=== PATIENT | male | born 2000 ===

== ENCOUNTER 2022-09-10 20:39 | Emergency (ER) | payer OTHER, SELFPAY ==
--- NOTE | 2022-09-10 20:46 | ED_ITS ---
HPI - General Adult General Chief complaint: Upper Respiratory Symptoms Stated complaint: Sore throat Time Seen by Provider: 09/10/22 20:41 History of Present Illness HPI narrative: 22-year-old male nonsmoker with noncontributory chronic medical history presents with his significant other for evaluation of sore throat and fever. He states he started getting sick on but then over the weekend started developing fear for her, significant sore throat in the absence of other symptoms such as runny nose, sneezing or cough. He is had no chest pain or shortness of breath. He denies nausea, vomiting or diarrhea. He presented to an outside walk-in clinic yesterday, had a rapid strep and though it was negative was started on amoxicillin, he presents today because he isn't feeling better. He denies exposure to other people that are ill. He feels fatigued and a bit lightheaded when walking, he states that he is had a hard time keeping food and drink down due to pain Related Data Allergies Allergy/AdvReac Type Severity Reaction Status Date / Time No Known Drug Allergies Allergy Verified 09/10/22 21:20 Review of Systems Review of Systems Narrative: GENERAL: See HPI HEENT: See HPI RESPIRATORY: See HPI CARDIOVASCULAR: Denies chest pain, palpitations, orthopnea, edema, GASTROINTESTINAL: Denies nausea, vomiting, abdominal pain, diarrhea, constipation, melena. : Denies dysuria, frequency, incontinence, hematuria, urinary retention. MUSCULOSKELETAL: denies weakness, joint pain, or bony pain SKIN: Denies rash, skin lesions, or other NEUROLOGIC: Denies weakness, headache, numbness, change in speech, confusion, seizures, incoordination. PSYCHIATRIC: No concerning psychosocial issues. 12 point review of systems is negative except for those stated above Patient History Social History Smoking Status: Never smoker Exam Narrative Exam Narrative: GENERAL: [22] year old patient appears stated age. Well-developed patient, in mild distress. HEAD: Atraumatic. Normocephalic. EYES: Pupils equal round and reactive. Extraocular motions intact. No scleral icterus. No injection or drainage. ENT: Nose without bleeding, purulent drainage. Throat is impressively erythematous with exudate on bilateral tonsils and posterior pharynx,. Airway patent. NECK: Trachea midline. Non tender CARDIOVASCULAR: Regular rate and rhythm without murmurs, gallops, or rubs. RESPIRATORY: Clear to auscultation. Breath sounds equal bilaterally. No wheezes, rales, or rhonchi. GASTROINTESTINAL: Abdomen soft, non-tender, nondistended. EXTREMITIES: No edema or joint tenderness. BACK: Nontender without deformity or crepitance. No flank tenderness. NEURO: AOx3. SKIN: No rash or erythema of visible areas Initial Vital Signs Initial Vital Signs: Vital Signs Temperature 101.5 F H 09/10/22 21:11 Pulse Rate 123 H 09/10/22 21:11 Respiratory Rate 18 09/10/22 21:11 Blood Pressure 141/75 H 09/10/22 21:11 Pulse Oximetry 97 09/10/22 21:11 Oxygen Delivery Method 09/10/22 21:11 Course Orders Ordered: ED Orders 09/10/22 21:04 Complete Blood Count AUTO DIFF Stat Comprehensive Metabolic Panel Stat Lactate (Lactic Acid) Stat Monotest Stat 09/10/22 21:33 Throat Culture Stat 09/10/22 21:40 Blood Culture Stat Discontinued Medications Dexamethasone (Dexamethasone 10 Mg/Ml Vial) 10 mg IV NOW ONE Stop: 09/10/22 20:54 Last Admin: 09/10/22 21:21 Dose: 10 mg Documented By: ZAIDA Lactated Ringer's (Lactated Ringers) 1,000 mls @ 1,000 mls/hr IV BOLUS ONE Stop: 09/10/22 21:52 Last Infusion: 09/10/22 22:44 Dose: 0 mls/hr Documented By: Admin: 09/10/22 21:20 Dose: 1,000 mls/hr Documented By: ZAIDA Ketorolac Tromethamine (Ketorolac 30 Mg/Ml Vial) 15 mg IV NOW ONE Stop: 09/10/22 20:54 Last Admin: 09/10/22 21:21 Dose: 15 mg Documented By: ZAIDA Vital Signs Vital signs: Vital Signs - 8 hr 09/10/22 21:11 09/10/22 22:08 09/10/22 22:07 Temperature 101.5 F H 99.4 F Pulse Rate 123 H 97 H Respiratory Rate 18 Blood Pressure 141/75 H Pulse Oximetry 97 96 Oxygen Delivery Method Room Air 09/10/22 22:30 09/10/22 22:40 09/10/22 22:40 Temperature Pulse Rate 91 H 101 H Respiratory Rate Blood Pressure 130/69 Pulse Oximetry 96 97 Oxygen Delivery Method Medical Decision Making Lab Data 09/10/22 21:04 09/10/22 21:04 Labs: Lab Results 09/10/22 09/10/22 09/10/22 Range/Units 21:04 21:04 21:04 WBC 11.6 H (4.5-11.0) X10^3/uL RBC 5.27 (4.5-5.9) X10^6/uL Hgb 14.7 (13.5-17.5) g/dL Hct 42.4 (41-53) % MCV 80.5 (80-100) fL MCH 27.8 (26-34) PG MCHC 34.5 (30-36) % RDW 13.2 (11.6-14.8) % Plt Count 238 (150-400) X10^3/uL Neut % (Auto) Not Reportable Lymph % (Auto) Not Reportable Wagoner % (Auto) Not Reportable Eos % (Auto) Not Reportable Baso % (Auto) Not Reportable Lymph # (Auto) Not Reportable Wagoner # (Auto) Not Reportable Baso # (Auto) Not Reportable Total Counted 100 Seg Neutrophils % 67.0 (38-70) % Band Neutrophils % 6.0 (3-7) % Lymphocytes % (Manual) 12.0 L (25-45) % Monocytes % (Manual) 13.0 H (2-11) % Basophils % (Manual) 1.0 (0-1) % Metamyelocytes % 1.0 H (-0) % Neutrophils # (Manual) 8468 H (4356-9564) /uL RBC Morphology Normal morphology Sodium 137 (137-145) mmol/L Potassium 3.9 (3.4-5.1) mmol/L Chloride 100 (98-107) mmol/L Carbon Dioxide 22 (22-32) mmol/L BUN 17 (9-20) mg/dL Creatinine 1.06 (0.66-1.25) mg/dL Estimated GFR > 60 (>60) mL/min BUN/Creatinine Ratio 16.0 (6-22) Glucose 95 (70-100) mg/dL Lactate 0.7 (0.7-2.1) mmol/L Calcium 8.6 (8.4-10.2) mg/dL Total Bilirubin 1.5 H (0.2-1.3) mg/dL AST 30 (17-59) IU/L ALT 33 (<50) IU/L Alkaline Phosphatase 56 (38-126) U/L Total Protein 8.4 H (6.3-8.2) g/dL Albumin 4.5 (3.5-5.0) g/dL Globulin 3.9 (1.7-4.1) g/dL Albumin/Globulin Ratio 1.2 (1.0-2.8) Monoscreen (Negative) 09/10/22 Range/Units 21:04 WBC (4.5-11.0) X10^3/uL RBC (4.5-5.9) X10^6/uL Hgb (13.5-17.5) g/dL Hct (41-53) % MCV (80-100) fL MCH (26-34) PG MCHC (30-36) % RDW (11.6-14.8) % Plt Count (150-400) X10^3/uL Neut % (Auto) Lymph % (Auto) Wagoner % (Auto) Eos % (Auto) Baso % (Auto) Lymph # (Auto) Wagoner # (Auto) Baso # (Auto) Total Counted Seg Neutrophils % (38-70) % Band Neutrophils % (3-7) % Lymphocytes % (Manual) (25-45) % Monocytes % (Manual) (2-11) % Basophils % (Manual) (0-1) % Metamyelocytes % (-0) % Neutrophils # (Manual) (0323-4593) /uL RBC Morphology Sodium (137-145) mmol/L Potassium (3.4-5.1) mmol/L Chloride (98-107) mmol/L Carbon Dioxide (22-32) mmol/L BUN (9-20) mg/dL Creatinine (0.66-1.25) mg/dL Estimated GFR (>60) mL/min BUN/Creatinine Ratio (6-22) Glucose (70-100) mg/dL Lactate (0.7-2.1) mmol/L Calcium (8.4-10.2) mg/dL Total Bilirubin (0.2-1.3) mg/dL AST (17-59) IU/L ALT (<50) IU/L Alkaline Phosphatase (38-126) U/L Total Protein (6.3-8.2) g/dL Albumin (3.5-5.0) g/dL Globulin (1.7-4.1) g/dL Albumin/Globulin Ratio (1.0-2.8) Monoscreen Negative (Negative) Point of Care Testing Rapid Strep A Negative Point of care testing: Point of Care Testing Rapid Strep A Negative MDM Narrative Medical decision making narrative: CC: 22-year-old male nonsmoker with pharyngitis Complicating co-morbidities: None known Data collected from: Patient Medical records reviewed: No prior notes available in our EMR, however he has his note from the Clinic from yesterday which is reviewed Differential considered, but not limited to: Strep pharyngitis, mono, peritonsillar abscess versus other Exam documented above, pertinent findings include: Controlling secretions, airway patent, no mass effect or uvular pointing noted, initially tachycardic which improves with fluids Lab Test results independently reviewed as above. Pertinent findings: Slight elevated white blood cell count, electrolytes and renal function appropriate Treatments: Decadron, Toradol, fluids Re-evaluations: Significant improvement, tolerating orals, pain controlled, vital signs improved Discussion: 22M with pharyngitis presents for evaluation. No evidence of abscess, patient controlling secretions and without difficulty breathing. Initially tachycardic, this improves with fluids pain control. He feels significant improvement over the course of the visit. Labs are very reassuring. At this time there is no evidence of medication failure, it is likely just too early in the process to have had significant impact. Wagoner screen is negative. I discussed with him the utility and staying well hydrated, staying the course with current medication regimen and we would contact him if the cultures would suggest a different path is needed. Disposition: see below, along with detailed discharge instructions that have been reviewed with patient as well as indications for ED re-evaluation and additional outpatient follow up Discharge Plan Departure Patient Disposition: Home Clinical Impression: Pharyngitis Instructions: Sore Throat Activity Restrictions/Additional Instructions: *You have been diagnosed with [ pharyngitis, dehydration] *What to do: *Please continue to take your regular medications as directed. *Please follow up with your primary care provider in 2-3 days, call for an appo intment. Let them know you were seen in the Emergency Department and that we ask that you be seen in follow up. We will electronically transmit a record of today's note if your PCP is in our system *Return to Emergency Department if you should have any new, worsening or concerning symptoms, such as [fever greater than 101 F, shaking chills, worsening pain, persistent vomiting or other bothersome symptoms] Referrals: Salma Alfredo [Primary Care Provider] - Stand Alone Forms: Patient Portal/API
[2022-09-10 21:11] VITALS: BP 141/75; PULSE 123; RESP 18; TEMP 38.6; O2SAT 97; BMI 23.6
[2022-09-10] MEDS: LACTATED RINGERS 1,000 ML 1000 ML IV (21:20)
[2022-09-10] MEDS: KETOROLAC 30 MG/ML VIAL 15 MG IV (21:21)
[2022-09-10] MEDS: DEXAMETHASONE 10 MG/ML VIAL IV (21:21)
[2022-09-10 21:23] LABS: Hematocrit 42.4 % (41-53); Hemoglobin 14.7 g/dL (13.5-17.5); Mean Corpuscular HGB Conc 34.5 % (30-36); Mean Corpuscular Hemoglobin 27.8 PG (26-34); Mean Corpuscular Volume 80.5 fL (80-100); Platelet Count 238 X10^3/uL (150-400); Red Blood Cell Count 5.27 X10^6/uL (4.5-5.9); Red Cell Distribution Width 13.2 % (11.6-14.8); White Blood Cell Count 11.6 X10^3/uL (4.5-11.0)
[2022-09-10 21:24] LABS: Add Manual Diff / Slide Review YES
[2022-09-10 21:25] LABS: Lactate (Lactic Acid) 0.7 mmol/L (0.7-2.1)
[2022-09-10 21:26] LABS: Alanine Aminotransferase 33 IU/L (<50); Albumin 4.5 g/dL (3.5-5.0); Albumin Globulin Ratio 1.2 (1.0-2.8); Alkaline Phosphatase 56 U/L (38-126); Aspartate Aminotransferase 30 IU/L (17-59); Bilirubin Total 1.5 mg/dL (0.2-1.3); Blood Urea Nitrogen 17 mg/dL (9-20); Calcium 8.6 mg/dL (8.4-10.2); Carbon Dioxide 22 mmol/L (22-32); Chloride 100 mmol/L (98-107); Estimated Glomerular Filt Rate > 60 mL/min (>60); Globulin 3.9 g/dL (1.7-4.1); Glucose 95 mg/dL (70-100); HEMOLYSIS 27 (0-50); Potassium 3.9 mmol/L (3.4-5.1); Sodium 137 mmol/L (137-145); Total Protein 8.4 g/dL (6.3-8.2)
[2022-09-10 21:33] LABS: Monotest Negative (Negative)
[2022-09-10 22:07] VITALS: PULSE 97; O2SAT 96
[2022-09-10 22:08] VITALS: TEMP 37.4
[2022-09-10 22:30] VITALS: PULSE 91; O2SAT 96
[2022-09-10 22:40] VITALS: BP 130/69; PULSE 101; O2SAT 97
[2022-09-10 23:12] LABS: Neutrophils Absolute Manual 8468 /uL (3000-5900); Total Cells Counted 100
[2022-09-10 23:13] LABS: RBC Morphology Normal Morphology
== END 2022-09-10 23:03 | disposition home or self-care (01) ==
PROVIDERS: Emergency Provider Emergency Medicine
DX: J02.9 Acute pharyngitis, unspecified (principal)
CPT/HCPCS: 36415; 80053; 83605; 85007; 85025; 86318; 87040; 87070; 87880; 96361; 96374; 96375; 99284; J1100; J1885

== ENCOUNTER 2024-09-10 04:35 | Emergency (ER) | payer OTHER, SELFPAY ==
--- NOTE | 2024-09-10 04:40 | DI.RAD.S_ITS ---
PROCEDURE: XR ANKLE LT MIN 3V INDICATIONS: pain, worse to the lateral malleolus TECHNIQUE: 3 views of the ankle were acquired. COMPARISON: None. FINDINGS: Bones: No fractures or dislocations. Ankle mortise is normally aligned. No suspicious bony lesions. Soft tissues: Mild soft tissue swelling over lateral malleolus is seen. No tibiotalar joint effusion. Achilles tendon appears normal. IMPRESSION: No acute ankle fracture or dislocation. Lateral ankle soft tissue swelling. No discrepancies from preliminary reading. Dictated by: Beau Diaz M.D. on 09/10/2024 at 8:16 Approved by: Beau Diaz M.D. on 09/10/2024 at 8:17
--- NOTE | 2024-09-10 04:40 | ED.LOWEXIN ---
HPI - Extremity Injury (Lower) General Chief Complaint: Extremity Injury, Lower Stated Complaint: possible left ankle sprain Time Seen by Provider: 09/10/24 04:40 History of Present Illness HPI Narrative: Patient is a 24-year-old male without any significant past medical history who presents to the emergency department from home for evaluation of left ankle pain. He states that he was playing basketball at around 7:00 p.m. yesterday, states he jumped and landed attempting to get a rebound and twisted his ankle. He states he had immediate pain states that he was unable to take a few steps after the incident, states that he has had persistent pain did buy a ankle support to try to help but due to persistent pain decided come into the ED for further evaluation treatment. He denies any other injury. Not on any blood thinners. Related Data Allergies Allergy/AdvReac Type Severity Reaction Status Date / Time No Known Drug Allergies Allergy Verified 09/10/22 21:20 Review of Systems Review of Systems Narrative: General: Denies fever, chills, weight loss HEENT: Denies headache, eye drainage, eye irritation, head trauma, sore throat, voice change Cardiovascular: Denies any chest pain, palpitations, shortness of breath, tachycardia Respiratory: Denies any shortness of breath, cough, wheeze, stridor GI/: Denies any abdominal pain, nausea, vomiting, diarrhea, bright red blood per rectum, melanotic stools, urinary frequency, urinary retention, dysuria, hematuria MSK: Positive left ankle pain Skin: Denies any rashes, lesions, discoloration Neuro: Denies any headache, lightheadedness, dizziness, fainting, weakness Psych: Denies SI/HI Patient History Social History Smoking Status: Never smoker Smoking Status: Never smoker alcohol intake frequency: 0-2 drinks per day Exam Narrative Exam Narrative: General: Cooperative, comfortable, well-developed, not in acute distress HEENT: Normocephalic, atraumatic, PERRLA, normal sclera, eyelids normal, Neck: Active full range of motion, atraumatic Chest: Normal to inspection, negative crepitus, no overlying erythema ecchymosis Respiratory: Normal respiratory effort, not in acute respiratory distress, clear to auscultation bilaterally negative cough, wheeze, tachypnea, rhonchi, rales Cardiology: Regular rate rhythm negative gallop, murmur, rubs GI/: Normal to inspection, soft, nonrigid, no tenderness to palpation, exam deferred MSK: Bilateral lower extremities are neurovascularly intact, there is tenderness to palpation over the lateral malleolus, no gross deformity noted no overlying erythema ecchymosis Skin: No rashes lesions noted Neuro: Alert awake oriented x3, moves all 4 extremities spontaneously, cranial nerves intact, able to answer all questions appropriately follows commands appropriately Psych: Cooperative, negative suicidal or homicidal ideations MDM - Extremity Injury (Lower) Differential Diagnosis Differential diagnosis: Likely ankle sprain and strain and ankle fracture Imaging Data Extremity x-ray #1: Radiologist's Impression: Preliminary read showing soft tissue swelling to the lateral malleolus however ankle mortise intact no fracture subluxation or dislocation MDM Narrative Medical decision making narrative: 24-year-old male without any significant past medical history presenting for left ankle pain after landing on it wrong. He states that he was playing basketball yesterday at around 7:00 p.m. went to jump and get the rebound but landed on his ankle weird. Had immediate pain was unable to ambulate immediately after. Has had persistent pain therefore decided come into the ED for further evaluation treatment. On exam neurovascularly intact but pain to palpation over the lateral malleolus. No gross deformity noted x-ray performed here did not show any acute fractures, patient will be placed in a ankle support crutches and instructed to follow up with primary care and orthopedic surgery in outpatient setting. Patient was given strict return precautions he verbalized understanding of this and agrees to being discharged home with outpatient follow up Discharge Plan Departure Patient Disposition: Home Clinical Impression: Ankle sprain and strain Instructions: How to Use Crutches, DI for Ankle Sprain Activity Restrictions/Additional Instructions: Please follow up with the primary care and orthopedic surgery as needed Please read the discharge instructions sheet carefully and bring all papers to all doctor follow-up visits, as it may contain information that your doctor may want to see. Disease processes change and evolve, if your symptoms worsen or if you develop any new symptoms that are concerning to you please return for evaluation. Your evaluation today does not show any evidence of any life-threatening/serious illnesses requiring admission to the hospital or surgery. Please follow-up with your doctor for re-evaluation in approximately 1 day. Seek immediate medical attention for any worrisome symptoms. *If you do not have a primary care provider please contact the [facility] Resource line at [phone]. They will ask some questions about your medical history and help get you set up with a doctor in the community. Referrals: ProviderSalma [Primary Care Provider] - Stand Alone Forms: Patient Portal/API/Survey
[2024-09-10 04:44] VITALS: BP 137/76; PULSE 104; RESP 16; TEMP 36.6; O2SAT 98; BMI 25.8
== END 2024-09-10 05:36 | disposition home or self-care (01) ==
PROVIDERS: Emergency Provider Student in an Organized Health Care Education/Training Program
DX: S93.402A Sprain of unspecified ligament of left ankle, initial encounter (principal); S96.912A Strain of unspecified muscle and tendon at ankle and foot level, left foot, initial encounter; X50.1XXA Overexertion from prolonged static or awkward postures, initial encounter; Y93.67 Activity, basketball
CPT/HCPCS: 73610; 99282; 99283